=== PATIENT | male | born 1990 | race Caucasian/White ===

== ENCOUNTER 2017-02-06 16:17 | Emergency (ER) | payer MEDICAID ==
--- NOTE | 2017-02-06 16:22 | EDPHY ---
H & P HPI/ROS: CHIEF COMPLAINT: Combative HISTORY OF PRESENT ILLNESS: The patient is a 27-year-old man who was acting erratically on the street in admits to using marijuana and alcohol. He was confronted by police and became combative. EMS was called. He required restraint and is brought to the ER. He received 5 mg of Haldol and 50 mg of Benadryl IM EN route. He has an abrasion to his right finger but denies any other injuries. He is not cooperative with questioning. REVIEW OF SYSTEMS: Unable to obtain secondary to condition EXAM: GENERAL: Disheveled, combative, spit mask in place HEAD: Atraumatic, normocephalic. EYES: Pupils equal round and reactive to light, extraocular movements intact, sclera anicteric, conjunctiva are normal. ENT: TMs normal, nares patent, oropharynx clear without exudates. Moist mucous membranes. NECK: Normal range of motion, supple without lymphadenopathy or JVD. LUNGS: Breath sounds clear to auscultation bilaterally and equal. No wheezes rales or rhonchi. HEART: Regular rate and rhythm without murmurs, rubs or gallops. ABDOMEN: Soft, nontender, normoactive bowel sounds. No guarding, no rebound. No masses appreciated. BACK: No CVA tenderness, no spinal tenderness, step-offs or deformities EXTREMITIES: Normal range of motion, no pitting or edema. No clubbing or cyanosis. NEUROLOGICAL: Cranial nerves II through XII grossly intact. Normal speech, normal gait. 5/5 strength, normal movement in all extremities, normal sensation PSYCH: Angry, screaming at people SKIN: Abrasion to right middle finger, Warm, dry, normal turgor, no visible rashes or lesions. Source: Patient, Police, EMS Exam Limitations: Intoxication - Medical/Surgical History Other PMH: Denies - Family History Significant Family History: No pertinent family hx - Social History Smoking Status: Current some day smoker Alcohol Use: Heavy Drug Use: Marijuana Constitutional: Initial Vital Signs Heart Rate 97 02/06/17 16:10 Respiratory Rate 18 02/06/17 16:10 Blood Pressure 116/73 02/06/17 16:10 O2 Sat (%) 94 02/06/17 16:10 O2 Delivery Mode Room Air Allergies/Adverse Reactions: Unable to Assess Allergy (Unverified 02/06/17 16:21) Home Medications: Medication Instructions Recorded Unobtainable 02/06/17 Medical Decision Making ED Course/Re-evaluation: The patient is minimally cooperative. He denies any medical complaints or history. His vital signs are stable. Police would like to taken to [facility]. He is medically clear from my standpoint. He will sober and possibly receive psychiatric care there. Differential Diagnosis: Partial list of the Differential diagnosis considered include but were not limited to; intoxication, substance abuse, psychiatric disease and although unlikely based on the history and physical exam, I also considered head injury, infection. I discussed these differential diagnoses and the plan with the patient as well as the usual and expected course. The patient understands that the diagnosis is provisional and that in medicine we are not always correct and that further workup is often warranted. Usual and customary warnings were given. All of the patient's questions were answered. The patient was instructed to return to the emergency department should the symptoms at all worsen or return, otherwise to followup with the physician as we discussed. Departure - Departure Disposition: Home, Routine, Self-Care Clinical Impression: Combative behavior, Polysubstance abuse Condition: Fair Instructions: Polysubstance Abuse (ED) Referrals: Patient,NotPresent [Primary Care Provider] - As per Instructions [facility],. [Clinic] - As per Instructions
[2017-02-06 16:24] VITALS: BP 116/73; PULSE 97; RESP 18; O2SAT 94
== END 2017-02-06 16:32 | disposition home or self-care (01) ==
DX: F91.9 Conduct disorder, unspecified (principal); F19.10 Other psychoactive substance abuse, uncomplicated; F17.200 Nicotine dependence, unspecified, uncomplicated